=== PATIENT | female | born 1945 | race Caucasian/White ===

== ENCOUNTER → 2017-05-03 | Outpatient (CLI) | payer MEDICARE, OTHER ==
[~2017-05-03] VITALS: Ht 170.2 cm; Wt 91.6 kg
[~2017-05-03] MED LIST: AMIT100T2; ASCO500C14; BUTA-234; BUTA-234 PO; CALCIUM PO; CHOL100011; CLCX200C; CYAN10007; CYCL10TA9 PO; EST.625T; GLUC10002; MEPE50TA; NAPR-243 PO; OXYC-12 PO; PRAM0.252; TRIA1TAB2; VERA240C2
[2017-05-03 10:32] VITALS: BP 130/81
[2017-05-03 10:50] VITALS: BP 124/70
--- NOTE | 2017-05-03 11:45 | Diagnostic Imaging Report ---
EXAMINATION: Dedicated thyroid ultrasound performed with ultrasound guidance provided for FNA performed by Dr. Solis. Indication: Thyroid nodule FINDINGS: Ultrasound images demonstrate a right thyroid nodule. IMPRESSION: Ultrasound guidance provided for right thyroid nodule FNA. Dictated by: Dictated on workstation # [id number]
== END ==
LOC: RAD 10:23
PROVIDERS: ATTEND Otolaryngology Otolaryngology/Facial Plastic Surgery
DX: E04.1 Nontoxic single thyroid nodule (principal)
CPT/HCPCS: 76942; 88305

== ENCOUNTER → 2017-09-03 | Outpatient (CLI) | payer MEDICARE, OTHER ==
--- NOTE | 2017-09-03 17:13 | Diagnostic Imaging Report ---
INDICATION: Left lung lesion. TECHNIQUE: CT chest obtained without IV contrast. COMPARISON: There is no previous study available for comparison. FINDINGS: There are no enlarged mediastinal or hilar nodes. There are no enlarged axillary nodes. There is enlargement of the left thyroid lobe which passes substernally. The left thyroid lobe measured about 3.2 cm in diameter inferiorly. There is no pleural or pericardial fluid. Visualized portions of the upper abdomen demonstrated no overt lesions. Lung parenchymal windows demonstrated a nodular lesion in the right middle lobe measuring about 8 mm. There is a small nodule in the left lower lobe measuring about 6 mm inferiorly. There is an additional nodular lesion in the left lower lobe more centrally measuring about 10 mm. IMPRESSION: 1. There are two left lower lobe nodules and one right middle lobe nodule as described above. These lesions may represent granulomas or small neoplasms. Would suggest either PET imaging or short-term followup in 3 months to assess for growth. 2. There is also enlargement of the left thyroid lobe, which can be followed sonographically. There was no other significant finding. Dictated by: Dictated on workstation # [id number]
== END ==
LOC: RAD 13:43
PROVIDERS: ATTEND Nurse Practitioner Family
DX: R91.8 Other nonspecific abnormal finding of lung field (principal); E04.9 Nontoxic goiter, unspecified
CPT/HCPCS: 71250

== ENCOUNTER 2017-11-23 08:09 | Day surgery (SDC) | payer MEDICARE, OTHER ==
[~2017-11-23] VITALS: Ht 170.2 cm; Wt 97.5 kg
[~2017-11-23 08:09] MED LIST changes: +AMIT100T2 PO; +ASPI-983 PO; +BUTA1TAB9 PO; +CEVI30CA7 PO; +PRAM0.252 PO; +SIMV20TA PO; +TRIA1CAP4 PO; +VERA360C2 PO
[2017-11-23 08:12] VITALS: BP 173/105
[2017-11-23] MEDS ORDERED: POVIDONE (BETADINE) OPHTH SOLN 5% 30 ML OP ONE (08:30)
[2017-11-23] MEDS: TETRACAINE 0.5% OPHTH SOLN 4 ML BTL (SINGLE DOSE ONLY) OU PRN ×4 (08:32→09:23)
[2017-11-23] MEDS: CYCLOPENTOLATE 1% (CYCLOGYL) 2 ML DROPS OP SCH ×3 (08:40→08:53)
[2017-11-23] MEDS: PHENYLEPHRINE 10% OPHTH (NEO-SYN) 5 ML BTL OU SCH ×3 (08:40→08:53)
[2017-11-23] MEDS ORDERED: MIDAZOLAM 2 MG/2 ML (VERSED) VIAL ONE (08:44)
--- NOTE | 2017-11-23 09:13 | Progress Note-Pre Operative ---
Pre-Operative Progress Note H&P Reviewed The H&P was reviewed, patient examined and no changes noted. Date Seen by Provider: Nov 23, 2017 Time Seen by Provider: 09:12 Date H&P Reviewed: Nov 23, 2017 Time H&P Reviewed: 09:13 Pre-Operative Diagnosis: cataract r eye KORINA COLE MD Nov 23, 2017 09:13
[2017-11-23] MEDS: VANCOMYCIN/BSS (COMPOUNDED) 10 MG/ML SYR OP ONE (09:25)
[2017-11-23 09:44] VITALS: BP 173/105
--- NOTE | 2017-11-23 09:45 | Ophthalmology Operative Report ---
Cataract removal/placement IOL PREOPERATIVE DIAGNOSIS: Cataract Right Eye POSTOPERATIVE DIAGNOSIS: Cataract Right Eye PROCEDURE: Cataract removal and placement of posterior chamber implant, right eye SURGEON: Jonathan Cole ANESTHESIA: Topical with sedation COMPLICATIONS: None ESTIMATED BLOOD LOSS: Minimal DESCRIPTION OF PROCEDURE: After proper informed consent was obtained, the patient, a 72 female, was taken to the Operating Room and the right eye was anesthetized with tetracaine. They right eye was then prepped and draped in the usual manner. A wire lid speculum was placed. A paracentesis was made at the left hand position. Preservative free lidocaine was injected into the anterior chamber followed by viscoelastic. A clear corneal incision was made in the temporal position. A capsulorrhexis was preformed and the central nuclear and cortical material were removed. The posterior capsule was polished and an Maxx SN6CWS 21.5 IOL was placed into the capsular bag. The residual viscoelastic was aspirated and balanced saline solution was injected into the anterior chamber. 0.1 ml of Vancomycin (1mg/0.1ml ) was injected into the anterior chamber. The would was checked and found to be water tight. The patient tolerated the procedure well without complications. JONATHAN COLE MD Nov 23, 2017 09:45
[2017-11-23] MEDS ORDERED: LIDOCAINE PF 2% 5 ML (XYLOCAINE) VIAL ONE (09:51)
[2017-11-23] MEDS ORDERED: LIDOCAINE PF 1% 2 ML AMP INJ ONE (11:47)
[2017-11-23] MEDS ORDERED: VANCOMYCIN/BSS (COMPOUNDED) 10 MG/ML SYR OP ONE (11:47)
[2017-11-23] MEDS ORDERED: TIMOLOL MALEATE 0.5% 5 ML (TIMOPTIC) BTL OU ONE (11:47)
[2017-11-27] MEDS ORDERED: EPINEPHrine INJECTION 1 MG/ML AMP IR ONE (12:57)
== END 2017-11-23 09:50 | disposition home or self-care (01) ==
LOC: SDC 08:09
PROVIDERS: ATTEND Specialist
DX: H25.9 Unspecified age-related cataract (principal); I10 Essential (primary) hypertension; E11.9 Type 2 diabetes mellitus without complications; Z79.82 Long term (current) use of aspirin; Z79.899 Other long term (current) drug therapy
CPT/HCPCS: 82962

== ENCOUNTER → 2017-12-05 | Outpatient (CLI) | payer MEDICARE, OTHER ==
--- NOTE | 2017-12-05 10:45 | Diagnostic Imaging Report ---
PROCEDURE: CT chest without contrast. TECHNIQUE: Multiple contiguous axial images were obtained through the chest without the use of intravenous contrast. INDICATION: Pulmonary nodules, followup. COMPARISON: Correlation is made with prior CT chest from 09/03/2017. FINDINGS: The enlarged left lobe of the thyroid is again noted and similar to prior examination. No axillary lymphadenopathy is identified. Hilar and mediastinal evaluation is limited without intravenous contrast but no significant abnormality is identified. No pericardial or pleural fluid is identified. Previously noted pulmonary parenchymal nodule in the lateral portion of the right middle lobe is stable at 8 mm, image 35. The nodular density in the anterior portion of the left lower lobe is stable at 11 mm, image 39. Smaller nodule more inferiorly in the lateral portion of the left lower lobe stable at 6-7 mm, image 48. No new or enlarging pulmonary nodules are identified. The images through the upper abdomen are unremarkable. IMPRESSION: Stable noncontrast CT of the chest when compared with prior examination from 09/03/2017. Previously noted pulmonary nodules are stable. Continued followup could be performed to confirm stability. Dictated by: Dictated on workstation # [id number]
== END ==
LOC: RAD 09:36
PROVIDERS: ATTEND Nurse Practitioner Family
DX: R91.8 Other nonspecific abnormal finding of lung field (principal)
CPT/HCPCS: 71250

== ENCOUNTER 2017-12-07 05:36 | Outpatient (CLI) | payer MEDICARE, OTHER ==
[~2017-12-07] VITALS: Ht 170.2 cm; Wt 97.5 kg
== END 2017-12-07 14:24 ==
LOC: PREOP 05:36
PROVIDERS: ATTEND Specialist
DX: Z01.818 Encounter for other preprocedural examination (principal); H25.12 Age-related nuclear cataract, left eye

== ENCOUNTER 2017-12-14 07:52 | Day surgery (SDC) | payer MEDICARE, OTHER ==
[~2017-12-14] VITALS: Ht 170.2 cm; Wt 97.5 kg
[2017-12-14] MEDS: TETRACAINE 0.5% OPHTH SOLN 4 ML BTL (SINGLE DOSE ONLY) OU PRN ×4 (08:13→08:40)
[2017-12-14] MEDS ORDERED: EPINEPHrine INJECTION 1 MG/ML AMP INJ ONE (08:15)
[2017-12-14] MEDS ORDERED: LIDOCAINE PF 1% 2 ML AMP IR PRN (08:15)
[2017-12-14] MEDS ORDERED: POVIDONE (BETADINE) OPHTH SOLN 5% 30 ML OP ONE (08:15)
[2017-12-14] MEDS ORDERED: TIMOLOL MALEATE 0.5% 5 ML (TIMOPTIC) BTL OU PRN (08:15)
[2017-12-14] MEDS ORDERED: VANCOMYCIN/BSS (COMPOUNDED) 10 MG/ML SYR OP ONE (08:15)
[2017-12-14 08:20] VITALS: BP 160/78
[2017-12-14] MEDS: CYCLOPENTOLATE 1% (CYCLOGYL) 2 ML DROPS OP SCH ×3 (08:28→08:40)
[2017-12-14] MEDS: PHENYLEPHRINE 10% OPHTH (NEO-SYN) 5 ML BTL OU SCH ×3 (08:28→08:40)
--- NOTE | 2017-12-14 09:10 | Ophthalmologist Pre-Op Note ---
Pre-Operative Progress Note H&P Reviewed The H&P was reviewed, patient examined and no changes noted. Date H&P Reviewed: Dec 14, 2017 Time H&P Reviewed: 09:10 Pre-Op Dx Cataract, Left Eye KORINA COLE MD Dec 14, 2017 09:10
[2017-12-14] MEDS ORDERED: MIDAZOLAM 2 MG/2 ML (VERSED) VIAL ONE (09:19)
--- NOTE | 2017-12-14 09:41 | Ophthalmology Operative Report ---
Cataract removal/placement IOL PREOPERATIVE DIAGNOSIS: Cataract Left Eye POSTOPERATIVE DIAGNOSIS: Cataract Left Eye PROCEDURE: Cataract removal and placement of posterior chamber implant, left eye SURGEON: Jonathan Cole ANESTHESIA: Topical with sedation COMPLICATIONS: None ESTIMATED BLOOD LOSS: Minimal DESCRIPTION OF PROCEDURE: After proper informed consent was obtained, the patient, a 72 female, was taken to the Operating Room and the left eye was anesthetized with tetracaine. They left eye was then prepped and draped in the usual manner. A wire lid speculum was placed. A paracentesis was made at the left hand position. Preservative free lidocaine was injected into the anterior chamber followed by viscoelastic. A clear corneal incision was made in the temporal position. A capsulorrhexis was preformed and the central nuclear and cortical material were removed. The posterior capsule was polished and Maxx SN6CWS 22.0 IOL was placed into the capsular bag. The residual viscoelastic was aspirated and balanced saline solution was injected into the anterior chamber. 1.0 ml of Vancomycin (10mg/ 1.0ml) was injected into the anterior chamber. The would was checked and found to be water tight. The patient tolerated the procedure well without complications. JONATHAN COLE MD Dec 14, 2017 09:41
[2017-12-14 09:50] VITALS: BP 143/55
--- NOTE | 2017-12-14 15:05 | Anesthesia-General Post-Op ---
MAC Patient Condition Mental Status/LOC: Same as Preop Cardiovascular: Satisfactory Nausea/Vomiting: Absent Respiratory: Satisfactory Pain: Controlled Complications: Absent Post Op Complications Complications None Follow Up Care/Instructions Patient Instructions None needed. Anesthesiology Discharge Order Discharge Order Patient is doing well, no complaints, stable vital signs, no apparent adverse anesthesia problems. No complications reported per nursing. LINCOLN WHITE CRNA Dec 14, 2017 15:05
--- OUTSIDE RECORDS SUMMARY | 2017-12-16 03:56 | XMS REPORT | Continuity of Care Document ---
Author Author [employer] Organization [facility] Address Unknown Phone Unavailable Care Team Providers Care Seismograph Chief Name Role Phone [employer] Unavailable Unavailable Problems Medications Allergies, Adverse Reactions, Alerts Immunizations Results Vital Signs Encounters Location Location Details Encounter Type Encounter Number Reason For Visit Attending Provider ADM Date DC Date Status Source OUTPATIENT [id number] MEGAN MORTON 05/24/2017 05/24/2017 Active [facility] OUTPATIENT [id number] CHAN MIRANDA 10/25/20172017 Active [facility] OUTPATIENT [id number] JOLANTA CHAUDHARI 11/15/20172017 Active [facility] CA SERIES [id number] RIAN DODD 11/29/20172017 Active [facility] Anoop DODD Active [facility] Procedures Plan of Care Social History Assessment and Plan Family History Advance Directives Functional Status
--- OUTSIDE RECORDS SUMMARY | 2017-12-16 03:57 | XMS REPORT | Encounter Summary ---
Author Author [facility] Organization [facility] Address Unknown Phone Unavailable Care Team Providers Care Psychiatric Nursing Assistant Name Role Phone Lilia Zhou MD PCP Kristopher Pack MD Unavailable Tamara Awan APRN Unavailable Dashawn Gonzalez MD Unavailable Reason for Referral * Radiology Services (Routine) Status Reason Specialty Diagnoses / Referred By Referred To Procedures Contact Contact No Auth Needed Radiology Diagnoses Jake Hassan Ww Ct Lymphadenopathy MD [place] of head and neck [address] [facility] [address] [address] [address] [place], [place] Phone: W/CONTRAST [phone] * Radiology Services (Routine) Status Reason Specialty Diagnoses / Referred By Referred To Procedures Contact Contact No Auth Needed Radiology Diagnoses Jake Hassan Ww Ct Lymphadenopathy MD [place] of head and neck [address] [facility] [address] [address] [address] [place], [place] Phone: W/CONTRAST [phone] Reason for Visit * Radiology Services (Routine) Status Reason Specialty Diagnoses / Referred By Referred To Procedures Contact Contact No Auth Needed Radiology Diagnoses Jake Hassan Ww Ct Lymphadenopathy MD [address] [place] of head and neck [address] [place] [address] [place] [address] [place], [place] Phone: W/CONTRAST [phone] Encounter Details Date Type Department Care Team Description 11/29/2017 [facility] Jake Hassan MD Encounter [facility] [address] [address] [place] [address] [place] [address] [phone] Social History Tobacco Use Types Packs/Day Years Used Date Never Smoker Smokeless Tobacco: Never Used Alcohol Use Drinks/Week oz/Week Comments No Sex Assigned at Date Recorded Not on file as of this encounter Medications at Time of Discharge Medication Sig. Disp. Refills Start Date End Date amitriptyline (ELAVIL) 25 4 tabs po hs 360 tablet 3 10/25/2017 mg tablet aspirin EC 81 mg tablet Take 81 mg by mouth daily. Take with food. butalbital/acetaminophen/ Take 1 tablet by mouth 100 tablet 5 2017 caffeine(+) (FIORICET) every 4 hours while awake 50/325/40 mg tablet as needed for Headache. one tab. as needed cevimeline(+) (EVOXAC) 30 Take 30 mg by mouth three mg capsule times daily. diclofenac sodium DR Take 50 mg by mouth twice (VOLTAREN) 50 mg tablet daily. DUREZOL 0.05 % ophthalmic 11/05/2017 emulsion estrogens, conjugated Take 1 Tab by mouth 90 Tab 3 08/28/2016 (PREMARIN) 0.3 mg tablet daily. METHYL-B12/L-MEFOLATE/B6 Take by mouth twice PHOS (METANX PO) daily. pramipexole (MIRAPEX) TAKE 1 TABLET BY MOUTH 190 tablet 3 10/25/2017 0.125 mg tablet TWICE DAILY. INDICATIONS: RESTLESS LEGS SYNDROME Saxagliptin (ONGLYZA) 2.5 Take by mouth daily. mg Tab Selenium 100 mcg tab Take 1 tablet by mouth 11/15/2017 twice daily. simvastatin (ZOCOR) 20 mg Take 20 mg by mouth at tablet bedtime daily. triamterene-hydrochloroth TAKE 1 TABLET BY MOUTH 90 tablet 0 2016 iazide (MAXZIDE) 37.5-25 DAILY. mg tablet trimethoprim/polymyxin B 11/05/2017 (POLYTRIM) 0.1 - 10,000 %-unit/mL ophthalmic solution verapamil SR (VERELAN) Take 1 capsule by mouth 90 capsule 3 2017 240 mg C24P at bedtime daily. as of this encounter Plan of Treatment Not on fileas of this encounter Results * CT NECK W/CONTRAST (11/29/2017 3:47 PM) Specimen Performing Laboratory [facility] RESULTS Impressions 1. Enlarged heterogeneous thyroid with a dominant nodule within the left inferior pole measuring up to 4.0 x 3.6 x 2.7 cm. In correlation with the recent ultrasound, this appears predominantly isoechoic to slightly hyperechoic on these ultrasound. Biopsy is suggested if not previously performed. 2. Midline thyroid attenuation soft tissue along the strap musculature extending superiorly. Differential considerations include an atypical exophytic parameter lobe, thyroid tissue or thyroid neoplasm within a thyroglossal duct cyst, or midline thyroid sher metastases. 3. No level 1 through 5 lymphadenopathy Finalized by Tay Gonzalez M.D. on 11/30/2017 9:32 AM. Dictated by Tay Gonzalez M.D. on 11/30/2017 9:[address] neck History: Lymphadenopathy of head and neck. Technique: Multiple contiguous axial images were obtained through the neck following the administration of Omnipaque 350 contrast. Coronal and sagittal reconstructions were performed from the source data. Findings: Comparison is made with an ultrasound of the neck from November 15, 2017. Brain and Orbits: No intracranial or orbital mass in the visualized portions of the brain or orbits Sinuses and Mastoids: There is a small left maxillary sinus retention cyst. Mastoid air cells appear clear. Thyroid: The thyroid is enlarged and heterogeneous. There is a dominant mass lesion within the left thyroid measuring approximately 4.0 x 3.6 x 2.7 cm ( image 53 of series 601 and image 33 of series 2). Suprahyoid Neck: Normal oral cavity, oropharynx, parapharyngeal space, and retropharyngeal space. Infrahyoid Neck: Within the midline infrahyoid neck there is nodular hyperdense or enhancing soft tissue with attenuation identical to that of the thyroid at the midline along the strap musculature. This appears predominantly above the isthmus. The superior extent remains below the thyroid. The tissue measures 2.2 x 1.0 cm AP and transverse on image 49 of series 2. Lymph Nodes: No level 1 through 5 lymphadenopathy. Parotid and Submandibular Glands: Unremarkable Vasculature: Unremarkable. Osseous Structures: Degenerative changes of the spine. Multiple absent teeth. No aggressive or destructive osseous lesions. Thoracic inlet: Some areas of atelectasis on the left. Procedure Note Interface, Radiant Results - 11/30/2017 9:35 AM HOME APPLIANCES MECHANIC CT neck History: Lymphadenopathy of head and neck. Technique: Multiple contiguous axial images were obtained through the neck following the administration of Omnipaque 350 contrast. Coronal and sagittal reconstructions were performed from the source data. Findings: Comparison is made with an ultrasound of the neck from November 15, 2017. Brain and Orbits: No intracranial or orbital mass in the visualized portions of the brain or orbits Sinuses and Mastoids: There is a small left maxillary sinus retention cyst. Mastoid air cells appear clear. Thyroid: The thyroid is enlarged and heterogeneous. There is a dominant mass lesion within the left thyroid measuring approximately 4.0 x 3.6 x 2.7 cm ( image 53 of series 601 and image 33 of series 2). Suprahyoid Neck: Normal oral cavity, oropharynx, parapharyngeal space, and retropharyngeal space. Infrahyoid Neck: Within the midline infrahyoid neck there is nodular hyperdense or enhancing soft tissue with attenuation identical to that of the thyroid at the midline along the strap musculature. This appears predominantly above the isthmus. The superior extent remains below the thyroid. The tissue measures 2.2 x 1.0 cm AP and transverse on image 49 of series 2. Lymph Nodes: No level 1 through 5 lymphadenopathy. Parotid and Submandibular Glands: Unremarkable Vasculature: Unremarkable. Osseous Structures: Degenerative changes of the spine. Multiple absent teeth. No aggressive or destructive osseous lesions. Thoracic inlet: Some areas of atelectasis on the left. IMPRESSION 1. Enlarged heterogeneous thyroid with a dominant nodule within the left inferior pole measuring up to 4.0 x 3.6 x 2.7 cm. In correlation with the recent ultrasound, this appears predominantly isoechoic to slightly hyperechoic on these ultrasound. Biopsy is suggested if not previously performed. 2. Midline thyroid attenuation soft tissue along the strap musculature extending superiorly. Differential considerations include an atypical exophytic parameter lobe, thyroid tissue or thyroid neoplasm within a thyroglossal duct cyst, or midline thyroid sher metastases. 3. No level 1 through 5 lymphadenopathy Finalized by Tay Gonzalez M.D. on 11/30/2017 9:32 AM. Dictated by Tay Gonzalez M.D. on 11/30/2017 9:13 AM. * POC CREATININE, RAD (11/29/2017 3:17 PM) Component Value Ref Range Creatinine, POC 0.9 0.4 - 1.00 MG/DL Specimen Performing Laboratory [facility] [address] [place] [address] in this encounter Visit Diagnoses Diagnosis Lymphadenopathy of head and neck Administered Medications Medication Order MAR Action Action Date Dose Rate Site iohexol (OMNIPAQUE-350) 350 mg/mL Given 11/29/2017 70 mL injection 70 mL 15:48 HOME APPLIANCES MECHANIC 70 mL, Intravenous, ONCE, 1 dose, Rossy 11/29/17 at 1500, NOTE: This is a HIGH ALERT Medication. sodium chloride PF 0.9% injection 50 mL Given 11/29/2017 50 mL 50 mL, Intravenous, ONCE, 1 dose, Rossy 15:48 HOME APPLIANCES MECHANIC 11/29/17 at 1500, Intra-procedure (IR) in this encounter
--- OUTSIDE RECORDS SUMMARY | 2017-12-16 03:57 | XMS REPORT | Encounter Summary ---
Author Author [facility] Organization [facility] Address Unknown Phone Unavailable Care Team Providers Care Painter Apprentice Name Role Phone Lilia Zhou MD PCP Kristopher Pack MD Unavailable Tamara Awan APRN Unavailable Dashawn Gonzalez MD Unavailable Reason for Referral * Radiology Services (Routine) Status Reason Specialty Diagnoses / Referred By Referred To Procedures Contact Contact No Auth Needed Radiology Diagnoses Jake Hassan, [address] Lymphadenopathy [address] [place] of head and neck [address] [place] [address] [place], [place] Phone: W/CONTRAST [phone] Encounter Details Date Type Department Care Team Description 11/20/2017 Orders Only [facility] Jake Hassan MD Lymphadenopathy of head [facility] - ENT [address] and neck (Primary Dx) 3RD FLOOR POD [address] [place] [address] OFFICE BLDG [phone] [place] [address] Social History Tobacco Use Types Packs/Day Years Used Date Never Smoker Smokeless Tobacco: Never Used Alcohol Use Drinks/Week oz/Week Comments No Sex Assigned at Date Recorded Not on file as of this encounter Progress Notes * Va Quintero LPN - 11/20/2017 1:16 PM COMPILATION CLERK Patient advised of Thyroid Ultrasound results, per Dr. Hassan requesting CT Scan Neck to further evaluate Mildly enlarged, indeterminant central compartment lymph nodes. Patient verbalized understanding. Appointment coordinated. in this encounter Plan of Treatment Not on [...] Interface, Radiant Results - 11/30/2017 9:[address] neck History: Lymphadenopathy of head and [...] Tay Gonzalez M.D. on 11/30/2017 9:13 AM. in this encounter Visit Diagnoses Diagnosis Lymphadenopathy of head and neck - Primary
--- OUTSIDE RECORDS SUMMARY | 2017-12-16 03:57 | XMS REPORT | Encounter Summary ---
Author Author [facility] Organization [facility] Address Unknown Phone Unavailable Care Team Providers Care Intelligence Consultant Name Role Phone Lilia Zhou MD PCP Kristopher Pack MD Unavailable Tamara Awan APRN Unavailable Dashawn Gonzalez MD Unavailable Encounter Details Date Type Department Care Team Description 11/29/2017 [facility] Lilia Zhou MD Encounter [facility] [address] [facility] [address] [place] [address] [facility] [address] [place], [place] [id number] [phone] Social History Tobacco Use Types Packs/Day Years [...] on fileas of this encounter Results * MAMMO SCREEN BILAT/TERRANCE/CAD (11/29/2017 4:20 PM) Specimen Performing Laboratory [facility] RESULTS Impressions ACR BI-RADS Assessments: BIRAD 1-Negative RECOMMENDATION: Routine screening mammogram in 1 year. Narrative Last mammogram was performed 1 year ago. Reason for exam: screening, asymptomatic. Performed by: Lu Del Rosario Staff Assistant [id number] DIGITAL MAMMO SCREEN BILAT/TERRANCE/CAD: NOVEMBER 29, 2017 - 2D/3D Procedure 3D Routine views. 2D Routine views. There are scattered areas of fibroglandular density.2D, and 3D images were obtained. No masses, densities or calcifications to suggest malignancy. No change when compared to prior studies. Electronically signed and approved by: Joseluis Munguia M.D. [id number] Procedure Note Interface, Radiant Results - 11/30/2017 7:24 AM ADMITTING SUPERVISOR Last mammogram was performed 1 year ago. Reason for exam: screening, asymptomatic. Performed by: Lu Del Rosario Staff Assistant [id number] DIGITAL MAMMO SCREEN BILAT/TERRANCE/CAD: NOVEMBER 29, 2017 - 2D/3D Procedure 3D Routine views. 2D Routine views. There are scattered areas of fibroglandular density. 2D, and 3D images were obtained. No masses, densities or calcifications to suggest malignancy. No change when compared to prior studies. Electronically signed and approved by: Joseluis Munguia M.D. [id number] IMPRESSION ACR BI-RADS Assessments: BIRAD 1-Negative RECOMMENDATION: Routine screening mammogram in 1 year. in this encounter Visit Diagnoses Diagnosis Breast cancer screening Breast screening, unspecified
--- OUTSIDE RECORDS SUMMARY | 2017-12-16 03:57 | XMS REPORT | Clinical Summary ---
Author Author [facility] Address Unknown Phone Unavailable Care Team Providers Care Heel Seat Trimmer Name Role Phone Lilia Zhou MD PCP Kristopher Pack MD Unavailable Tamara Awan APRN Unavailable Dashawn Gonzalez MD Unavailable Source Comments Some departments are not documenting in the electronic medical record. If you do not see the information that you expected, contact Release of Information in the Health Information Management department at [phone] for further assistance in locating additional records.[facility] Allergies No Known Allergies Current Medications Prescription Sig. Disp. Refills Start End Date Status Date Saxagliptin (ONGLYZA) 2.5 Take by mouth daily. Active mg Tab METHYL-B12/L-MEFOLATE/B6 Take by mouth twice Active PHOS (METANX PO) daily. diclofenac sodium DR Take 50 mg by mouth twice Active (VOLTAREN) 50 mg tablet daily. simvastatin (ZOCOR) 20 mg Take 20 mg by mouth at Active tablet bedtime daily. cevimeline(+) (EVOXAC) 30 Take 30 mg by mouth three Active mg capsule times daily. estrogens, conjugated Take 1 Tab by mouth 90 Tab 3 08/28/20 Active (PREMARIN) 0.3 mg tablet daily. 16 triamterene-hydrochloroth TAKE 1 TABLET BY MOUTH 90 tablet 0 09/14/20 Active iazide (MAXZIDE) 37.5-25 DAILY. 17 mg tablet amitriptyline (ELAVIL) 25 4 tabs po hs 360 tablet 3 10/25/19 Active mg tablet 18 butalbital/acetaminophen/ Take 1 tablet by mouth 100 tablet 5 Active caffeine(+) (FIORICET) every 4 hours while awake 18 50/325/40 mg tablet as needed for Headache. one tab. as needed pramipexole (MIRAPEX) TAKE 1 TABLET BY MOUTH 190 tablet 3 10/25/19 Active 0.125 mg tablet TWICE DAILY. INDICATIONS: 18 RESTLESS LEGS SYNDROME verapamil SR (VERELAN) Take 1 capsule by mouth 90 capsule 3 10/25/19 Active 240 mg C24P at bedtime daily. 18 Selenium 100 mcg tab Take 1 tablet by mouth 11/15/19 Active twice daily. 18 DUREZOL 0.05 % ophthalmic 11/05/19 Active emulsion 18 trimethoprim/polymyxin B 11/05/19 Active (POLYTRIM) 0.1 - 10,000 18 %-unit/mL ophthalmic solution aspirin EC 81 mg tablet Take 81 mg by mouth Active daily. Take with food. 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 Hassan's office regarding CT neck performed today. 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 S/p wide local excision of right forearm melanoma (0.36 mm deep) performed in 2000. PRESENT THERAPY : Surveillance/Survivorship L ast Assessment & Plan: No evidence of recurrent disease. We discussed on-going surveillance and survivorship issues. We have recommended the use of Vitamin D 2000 iu daily. We reviewed safe sun practices--limit exposure during peak hours, SPF 30 or greater, avoid tanning beds, seek shade, sun protective clothes, routine health maintenance including other cancer screening as appropriate and immunizations. We reviewed the need for on-going detailed skin examination as well as skin self exam and the ABCDEs of pigmented lesions. The patient has been counseled that, in addition to the risk of recurrent melanoma, there is a higher than normal risk of developing a another primary melanoma over time. The patient asked questions and time was allowed to fully answer these. She is many years out but prefers to continue her follow up surveillance and skin examinations in this clinic. PLAN: 1. Will return to clinic in one year. 2. She has been having screening mammography performed here at the same time as these visits and will order on return. The above plan was discussed and reviewed with the patient/family and they have received appropriate instructions and education and verbalize good understanding. Lump or mass in breast 10/16/2007 Encounters Date Type Specialty Care Team Description 11/29/2017 [facility] Radiology Lilia Zhou MD Encounter 11/29/2017 [facility] Radiology Jake Hassan MD Encounter 11/29/2017 Office Visit Oncology Deborah Ferreira PA-C Malignant melanoma, Me[place], Ro, BIZTALK ARCHITECT unspecified site (HCC); Thyroid nodule 11/23/2017 Ancillary Radiology Lilia Zhou MD Breast cancer screening Orders 11/22/2017 Telephone General Surgery Elsy Frost Test 11/20/2017 Procedure Pass Radiology 11/20/2017 Orders Only Otolaryngology Jake Hassan MD Lymphadenopathy of head and neck (Primary Dx) 11/16/2017 Telephone Endocrinology, Metabolism Arnold Reyna MD Results & Genetics 11/15/2017 [facility] Lab Arnold Reyna MD Nontoxic single thyroid Encounter nodule 11/15/2017 Office Visit Otolaryngology Jake Hassan MD Thyroid nodule (Primary Dx); Myrtle's edema of the vocal folds 11/15/2017 Procedure visit Endocrinology, Metabolism Arnold Reyna MD Thyroid nodule (Primary & Genetics Dx); 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 [facility] Radiology Jake Hassan MD Encounter 10/31/2017 Telephone Endocrinology, Metabolism Arnold Reyna MD Other (appointment) & Genetics 10/31/2017 Refill Neurology Dashawn Gonzalez MD 10/30/2017 Refill Neurology Dashawn Gonzalez MD 10/25/2017 Office Visit Neurology Lilia Zhou MD Migraine without status Jerry, Chayo Berger, DO migrainosus, not intractable, unspecified migraine type (Primary Dx); Restless legs syndrome 10/19/2017 Refill Neurology Dashawn Gonzalez MD 10/06/2017 Refill Neurology Dashawn Gonzalez MD from Last 3 Months Family History Relation Name Status Comments Brother Alive Father Mother Sister Alive Son Alive Son Alive Social History Tobacco Use Types Packs/Day Years Used Date Never Smoker Smokeless Tobacco: Never Used Alcohol Use Drinks/Week oz/Week Comments No Sex Assigned at Date Recorded Not on file Last Filed Vital Signs Vital Sign Reading Time Taken Blood Pressure 188/100 11/29/2017 1:47 PM MEASUREMENT ANALYST Pulse 74 11/29/2017 1:47 PM MEASUREMENT ANALYST Temperature 36.5 C (97.7 F) 11/29/2017 1:47 PM MEASUREMENT ANALYST Respiratory Rate 17 11/29/2017 1:47 PM MEASUREMENT ANALYST Oxygen Saturation 100% 11/29/2017 1:47 PM MEASUREMENT ANALYST Inhaled Oxygen - - Concentration Weight 101 kg (222 lb 9.6 oz) 11/29/2017 1:47 PM MEASUREMENT ANALYST Height 170.2 cm (5' 7.01") 11/29/2017 1:47 PM MEASUREMENT ANALYST Body Mass Index 34.86 11/29/2017 1:47 PM MEASUREMENT ANALYST Plan of Treatment Health Maintenance Due Date Last Done Comments PHYSICAL (COMPREHENSIVE) 1952 EXAM PERTUSSIS VACCINE 1954 TETANUS VACCINE 1960 COLORECTAL CANCER 1993 SCREENING SHINGLES VACCINE 2003 OSTEOPOROSIS SCREENING 2008 PREVNAR/PNEUMOVAX (#1) 2008 INFLUENZA VACCINE 07/08/2018 BREAST CANCER SCREENING 11/29/2018 11/29/2017, 11/29/2016, 11/24/2015, Additional history exists Results * MAMMO SCREEN BILAT/TERRANCE/CAD (11/29/2017 4:20 PM) Specimen Performing Laboratory [facility] RESULTS Impressions ACR BI-RADS Assessments: BIRAD 1-Negative RECOMMENDATION: Routine screening mammogram in 1 year. Narrative Last mammogram was performed 1 year ago. Reason for exam: screening, asymptomatic. Performed by: Lu Del Rosario, Sensory Scientist [id number] DIGITAL MAMMO SCREEN BILAT/TERRANCE/CAD: NOVEMBER 29, 2017 - 2D/3D Procedure 3D Routine views. 2D Routine views. There are scattered areas of fibroglandular density.2D, and 3D images were obtained. No masses, densities or calcifications to suggest malignancy. No change when compared to prior studies. Electronically signed and approved by: Joseluis Munguia M.D. [id number] Procedure Note Interface, Radiant Results - 11/30/2017 7:24 AM MEASUREMENT ANALYST Last mammogram was performed 1 year ago. Reason for exam: screening, asymptomatic. Performed by: Lu Del Rosario, Sensory Scientist [id number] DIGITAL MAMMO SCREEN BILAT/TERRANEC/CAD: NOVEMBER 29, 2017 - 2D/3D Procedure 3D Routine views. 2D Routine views. There are scattered areas of fibroglandular density. 2D, and 3D images were obtained. No masses, densities or calcifications to suggest malignancy. No change when compared to prior studies. Electronically signed and approved by: Joseluis Munguia M.D. [id number] IMPRESSION ACR BI-RADS Assessments: BIRAD 1-Negative RECOMMENDATION: Routine screening mammogram in 1 year[address] * CT NECK W/CONTRAST (11/29/2017 3:47 PM) [...] Interface, Radiant Results - 11/30/2017 9:[address] neck History: Lymphadenopathy of head and [...] MG/DL Specimen Performing Laboratory [facility] [address] [place] [address] * THYROID STIMULATING HORMONE-TSH (11/15/2017 1:41 PM) Component Value Ref Range TSH 0.454 0.35 - 5.00 MCU/ML Specimen Performing Laboratory Blood [facility] [address] [place] [address] * FREE T4 (FREE THYROXINE) ONLY (11/15/2017 1:41 PM) Component Value Ref Range T4-Free 0.9 0.6 - 1.6 NG/DL Specimen Performing Laboratory Blood MAIN [facility] [address] [place] [address] * US THYROID (11/15/2017 11:37 AM) Specimen Performing Laboratory [facility] RAD RESULTS Impressions 1.Enlarged, diffusely heterogeneous and mildly hypervascular thyroid gland. This is compatible with the stated history of Darline's thyroiditis. The largest and most discrete nodule in the right lower pole is not significantly changed since the prior study 03/21/2017. No enlarging or morphologically suspicious thyroid nodules are identified to warrant biopsy at this time. 2.Mildly enlarged, indeterminant central compartment lymph nodes. 3.Normal size lateral cervical lymph nodes, which are most likely reactive in nature. If patient continues conservative management, a repeat thyroid ultrasound is recommended in one year to evaluate stability of the thyroid gland and central compartment lymph nodes. Finalized by Samantha Cleveland M.D. on 11/15/2017 4:23 PM. Dictated by Samantha Cleveland M.D. on 11/15/2017 3:50 PM. Narrative Ultrasound of the Neck Clinical Indication:Female, 71 years;thyroid nodule. Per chart review, patient has a history of Darline's thyroiditis. Technique: Multiple grayscale sonographic images were obtained of the neck with additional Color Doppler acquisitions. Comparison: Thyroid ultrasound performed at an outside facility 03/21/2017 Findings: The isthmus is thickened and mildly hypervascular. No discrete nodule identified. The right lobe of the thyroid is enlarged measuring 7.5 x 2.6 x 2.9 cm.The right lobe parenchyma is diffusely heterogeneous and mildly hypervascular. There are numerous similar appearing, confluent nodules throughout the right lobe. The largest and most discrete nodule is measured. There is also a coarse shadowing calcification in the mid right lobe which shows no significant associated solid component. *Nodule 1: Lower pole, posterior. Solid, isoechoic, somewhat lobulated margins, no calcification. Measures 1.5 x 1.1 x 1.4 cm. This measured approximately 1.6 x 1 x 1.3 cm. The left lobe of the thyroid is enlarged measuring 7.6 x 3.6 x 3.1 cm.The right lobe parenchyma is diffusely heterogeneous and mildly hypervascular. Occasional coarse calcification are also noted throughout the left lobe parenchyma. No discrete thyroid nodules are identified. Enlarged upper central compartment lymph nodes are noted. These all maintain an elongated shape though lack a fatty hilum. The largest fulfillment representative level one lymph node measures 2.3 x 0.8 x 2.3 cm (labeled #2), with somewhat disorganized blood flow on color Doppler interrogation. Prominent, yet normal sized bilateral cervical lymph nodes are noted. These all maintain an elongated shape and typical fatty hilum, most likely reactive in nature. Procedure Note Interface, Radiant Results - 11/15/2017 4:26 PM MEASUREMENT ANALYST Ultrasound of the Neck Clinical Indication:Female, 71 years; thyroid nodule. Per chart review, patient has a history of Darline's thyroiditis. Technique: Multiple grayscale sonographic images were obtained of the neck with additional Color Doppler acquisitions. Comparison: Thyroid ultrasound performed at an outside facility 03/21/2017 Findings: The isthmus is thickened and mildly hypervascular. No discrete nodule identified. The right lobe of the thyroid is enlarged measuring 7.5 x 2.6 x 2.9 cm. The right lobe parenchyma is diffusely heterogeneous and mildly hypervascular. There are numerous similar appearing, confluent nodules throughout the right lobe. The largest and most discrete nodule is measured. There is also a coarse shadowing calcification in the mid right lobe which shows no significant associated solid component. * Nodule 1: Lower pole, posterior. Solid, isoechoic, somewhat lobulated margins , no calcification. Measures 1.5 x 1.1 x 1.4 cm. This measured approximately 1.6 x 1 x 1.3 cm. The left lobe of the thyroid is enlarged measuring 7.6 x 3.6 x 3.1 cm. The right lobe parenchyma is diffusely heterogeneous and mildly hypervascular. Occasional coarse calcification are also noted throughout the left lobe parenchyma. No discrete thyroid nodules are identified. Enlarged upper central compartment lymph nodes are noted. These all maintain an elongated shape though lack a fatty hilum. The largest fulfillment representative level one lymph node measures 2.3 x 0.8 x 2.3 cm (labeled #2), with somewhat disorganized blood flow on color Doppler interrogation. Prominent, yet normal sized bilateral cervical lymph nodes are noted. These all maintain an elongated shape and typical fatty hilum, most likely reactive in nature. IMPRESSION 1. Enlarged, diffusely heterogeneous and mildly hypervascular thyroid gland. This is compatible with the stated history of Darline's thyroiditis. The largest and most discrete nodule in the right lower pole is not significantly changed since the prior study 03/21/2017. No enlarging or morphologically suspicious thyroid nodules are identified to warrant biopsy at this time. 2. Mildly enlarged, indeterminant central compartment lymph nodes. 3. Normal size lateral cervical lymph nodes, which are most likely reactive in nature. If patient continues conservative management, a repeat thyroid ultrasound is recommended in one year to evaluate stability of the thyroid gland and central compartment lymph nodes. Finalized by Samantha Cleveland M.D. on 11/15/2017 4:23 PM. Dictated by Samantha Cleveland M.D. on 11/15/2017 3:50 PM. from Last 3 Months
--- OUTSIDE RECORDS SUMMARY | 2017-12-16 03:57 | XMS REPORT | Encounter Summary ---
Author Author [facility] Organization [facility] Address Unknown Phone Unavailable Care Team Providers Care Extract Puller Name Role Phone Lilia Zhou MD PCP Kristopher Pack MD Unavailable Tamara Awan APRN Unavailable Dashawn Gonzalez MD Unavailable Encounter Details Date Type Department Care Team Description 11/23/2017 Ancillary Rad Lilia Zhou MD Breast cancer screening Orders [address] [facility] [address] [place] [address] [place] [address] Social History Tobacco Use Types Packs/Day Years Used Date Never Smoker Smokeless Tobacco: Never Used Alcohol Use Drinks/Week oz/Week Comments No Sex Assigned at Date Recorded Not on file as of this encounter Plan of Treatment Not on fileas of this encounter Results * MAMMO SCREEN BILAT/TERRANCE/CAD (11/29/2017 4:20 PM) Specimen Performing Laboratory [facility] RESULTS Impressions ACR BI-RADS Assessments: BIRAD 1-Negative RECOMMENDATION: Routine screening mammogram in 1 year. Narrative Last mammogram was performed 1 year ago. Reason for exam: screening, asymptomatic. Performed by: Lu Del Rosario, Horse Breeder [id number] DIGITAL MAMMO SCREEN BILAT/TERRANCE/CAD: NOVEMBER 29, 2017 - 2D/3D Procedure 3D Routine views. 2D Routine views. There are scattered areas of fibroglandular density.2D, and 3D images were obtained. No masses, densities or calcifications to suggest malignancy. No change when compared to prior studies. Electronically signed and approved by: Joseluis Munguia M.D. [id number] Procedure Note Interface, Radiant Results - 11/30/2017 7:24 AM WALLCOVERING TEXTURER Last mammogram was performed 1 year ago. Reason for exam: screening, asymptomatic. Performed by: Lu Del Rosario, Horse Breeder [id number] DIGITAL MAMMO SCREEN BILAT/TERRANCE/CAD: NOVEMBER 29, 2017 - 2D/3D Procedure 3D Routine views. 2D Routine views. There are scattered areas of fibroglandular density. 2D, and 3D images were obtained. No masses, densities or calcifications to suggest malignancy. No change when compared to prior studies. Electronically signed and approved by: Joseluis Munguia M.D. [id number] IMPRESSION ACR BI-RADS Assessments: BIRAD 1-Negative RECOMMENDATION: Routine screening mammogram in 1 year. in this encounter Visit Diagnoses Diagnosis Breast cancer screening Breast screening, unspecified
--- OUTSIDE RECORDS SUMMARY | 2017-12-16 03:57 | XMS REPORT | Encounter Summary ---
Author Author [facility] Organization [facility] Address Unknown Phone Unavailable Care Team Providers Care Grievance Manager Name Role Phone Lilia Zhou MD PCP Kristopher Pack MD Unavailable Tamara Awan APRN Unavailable Dashawn Gonzalez MD Unavailable Reason for Visit * Reason Comments Results Encounter Details Date Type Department Care Team Description 11/16/2017 Telephone [facility] Arnold Reyna MD Results Physicians - Internal [address] [place] [address] Endocrinology Clinic [phone] Medical Office [address] [place] [address] Social History Tobacco Use Types Packs/Day Years Used Date Never Smoker Smokeless Tobacco: Never Used Alcohol Use Drinks/Week oz/Week Comments No Sex Assigned at Date Recorded Not on file as of this encounter Miscellaneous Notes * Telephone Encounter - Jenn Hassan LPN - 11/16/2017 3:06 PM QUILTING SUPERVISOR Called patient relayed message Patient verbalized understanding * Telephone Encounter - Arnold Reyna MD - 11/16/2017 11:02 AM QUILTING SUPERVISOR Please let Ms Rodrigues know, her thyroid levels were normal. They need to be checked annually. in this encounter Plan of Treatment Not on fileas of this encounter Visit Diagnoses Not on filein this encounter
--- OUTSIDE RECORDS SUMMARY | 2017-12-16 03:57 | XMS REPORT | Encounter Summary ---
Author Author [facility] Organization [facility] Address Unknown Phone Unavailable Care Team Providers Care Statuary Painter Name Role Phone Lilia Zhou MD PCP Kristopher Pack MD Unavailable Tamara Awan APRN Unavailable Dashawn Gonzalez MD Unavailable Encounter Details Date Type Department Care Team Description 11/20/2017 Procedure Pass [facility] Radiology [address] [place] [address] Social History Tobacco Use Types Packs/Day Years Used Date Never Smoker Smokeless Tobacco: Never Used Alcohol Use Drinks/Week oz/Week Comments No Sex Assigned at Date Recorded Not on file as of this encounter Plan of Treatment Not on fileas of this encounter Visit Diagnoses Not on filein this encounter
--- OUTSIDE RECORDS SUMMARY | 2017-12-16 03:57 | XMS REPORT | Encounter Summary ---
Author Author [facility] Organization [facility] Address Unknown Phone Unavailable Care Team Providers Care Manager Transportation Planning Name Role Phone Lilia Zhou MD PCP Kristopher Pack MD Unavailable Tamara Awan BALL FRINGE MACHINE OPERATOR Unavailable Dashawn Gonzalez MD Unavailable Reason for Visit * Reason Comments Heme/Onc Care * Consult, Test & Treat Status Reason Specialty Diagnoses / Referred By Referred To Procedures Contact Contact Closed Specialty Oncology Diagnoses Deborah Ferreira Henderson, Ro, Services Personal history ESCOBAR BALL FRINGE MACHINE OPERATOR Required of malignant [address] Nont[address] single [address] [place] [address] [address] [address] Phone: [facility] [place] OFFICE/OUTPT [phone] VISITIFTIKHAR LEVL Fax: IV [phone] Encounter Details Date Type Department Care Team Description 11/29/2017 Office Visit [facility] Deborah Ferreira PA-C Malignant melanoma, [facility] Exam [address] unspecified site (HCC); [address] [place] [address] [place] [address] [phone] Lucero Gautam, BALL FRINGE MACHINE OPERATOR [address] [place], [place] [id number] Social History Tobacco Use Types Packs/Day Years Used Date Never Smoker Smokeless Tobacco: Never Used Alcohol Use Drinks/Week oz/Week Comments No Sex Assigned at Date Recorded Not on file as of this encounter Last Filed Vital Signs Vital Sign Reading Time Taken Blood Pressure 188/100 11/29/2017 1:47 PM JACKER FEEDER Pulse 74 11/29/2017 1:47 PM JACKER FEEDER Temperature 36.5 C (97.7 F) 11/29/2017 1:47 PM JACKER FEEDER Respiratory Rate 17 11/29/2017 1:47 PM JACKER FEEDER Oxygen Saturation 100% 11/29/2017 1:47 PM JACKER FEEDER Inhaled Oxygen - - Concentration Weight 101 kg (222 lb 9.6 oz) 11/29/2017 1:47 PM JACKER FEEDER Height 170.2 cm (5' 7.01") 11/29/2017 1:47 PM JACKER FEEDER Body Mass Index 34.86 11/29/2017 1:47 PM JACKER FEEDER in this encounter Progress Notes * Lucero Meier, BALL FRINGE MACHINE OPERATOR - 11/29/2017 2:00 PM JACKER FEEDER Formatting of this note may be different from the original. Name: Lena Rodrigues : 1945 AGE: 72 y.o. DATE OF SERVICE: 11/29/2017 Subjective: Reason for Visit: Heme/Onc Care Lena Rodrigues is a 72 y.o. female. No matching staging information was found for the patient. History of Present Illness 72 y/o pleasant white female with hx of melanomas. According to her records she had wide local excision of left anterior chest melanoma (1.0 mm deep) with SLNBx (-) performed in 1995. She also had wide local excision of right forearm melanoma (0.36 mm deep) performed in 2000. These were performed by Dr. Dean Mirza. She has most recently been followed by Dr. Olivares who has referred her to Melanoma Survivorship for ongoing surveillance. She is also followed by Dr. Gonzalez in Neurosurgery for migraines. She is following with ENT for hx of thyroid nodules and had CT neck performed today for them. She states she is feeling well and denies symptoms or concerns. Past Medical History: Diagnosis Date Breast fibroadenoma DM (diabetes mellitus) (HCC) Hx of basal cell carcinoma Malignant melanoma nos Multiple thyroid nodules Past Surgical History: Procedure Laterality Date CHEST SURGERY wide local excision of left anterior chest melanoma (1.0 mm deep) with SLNBx (- ) performed in 1995. S/p wide local excision of right forearm melanoma (0.2 mm deep) performed in 2000. Social History Social History Marital status: Spouse name: N/A Number of children: N/A Years of education: N/A Occupational History Not on file. Social History Main Topics Smoking status: Never Smoker Smokeless tobacco: Never Used Alcohol use No Drug use: No Sexual activity: Not on file Other Topics Concern Not on file Social History Narrative No narrative on file No family hx of melanoma Review of Systems Constitutional: Negative. Respiratory: Negative. Gastrointestinal: Negative. Skin: Negative. Neurological: Negative. All other systems reviewed and are negative. Objective: amitriptyline (ELAVIL) 25 mg tablet 4 tabs po hs aspirin EC 81 mg tablet Take 81 mg by mouth daily. Take with food. butalbital/acetaminophen/caffeine(+) (FIORICET) 50/325/40 mg tablet Take 1 tablet by mouth every 4 hours while awake as needed for Headache. one tab. as needed cevimeline(+) (EVOXAC) 30 mg capsule Take 30 mg by mouth three times daily. diclofenac sodium DR (VOLTAREN) 50 mg tablet Take 50 mg by mouth twice daily. DUREZOL 0.05 % ophthalmic emulsion estrogens, conjugated (PREMARIN) 0.3 mg tablet Take 1 Tab by mouth daily. METHYL-B12/L-MEFOLATE/B6 PHOS (METANX PO) Take by mouth twice daily. pramipexole (MIRAPEX) 0.125 mg tablet TAKE 1 TABLET BY MOUTH TWICE DAILY. INDICATIONS: RESTLESS LEGS SYNDROME Saxagliptin (ONGLYZA) 2.5 mg Tab Take by mouth daily. Selenium 100 mcg tab Take 1 tablet by mouth twice daily. simvastatin (ZOCOR) 20 mg tablet Take 20 mg by mouth at bedtime daily. triamterene-hydrochlorothiazide (MAXZIDE) 37.5-25 mg tablet TAKE 1 TABLET BY MOUTH DAILY. trimethoprim/polymyxin B (POLYTRIM) 0.1 - 10,000 %-unit/mL ophthalmic solution verapamil SR (VERELAN) 240 mg C24P Take 1 capsule by mouth at bedtime daily. Vitals: 11/29/17 1347 BP: (!) 188/100 Pulse: 74 Resp: 17 Temp: 36.5 C (97.7 F) TempSrc: Oral SpO2: 100% Weight: 101 kg (222 lb 9.6 oz) Height: 170.2 cm (67.01") Body mass index is 34.86 kg/m. Pain Score: Zero Pain Addressed: N/A Patient Evaluated for a Clinical Trial: No treatment clinical trial available for this patient. Eastern Cooperative Oncology Group performance status is 0, Fully active, able to carry on all pre-disease performance without restriction.. Physical Exam Constitutional: She is oriented to person, place, and time. She appears well- developed and well-nourished. No distress. HENT: Head: Normocephalic. Mouth/Throat: Oropharynx is clear and moist. Neck: Trachea normal and normal range of motion. Neck supple. Cardiovascular: Normal rate, regular rhythm, S1 normal and S2 normal. Exam reveals no S3 and no S4. Pulmonary/Chest: Effort normal and breath sounds normal. Abdominal: Soft. Normal appearance and bowel sounds are normal. She exhibits no mass. There is no hepatosplenomegaly. There is no tenderness. Musculoskeletal: She exhibits no edema. Lymphadenopathy: Head (right side): No submental, no submandibular, no tonsillar, no preauricular, no posterior auricular and no occipital adenopathy present. Head (left side): No submental, no submandibular, no tonsillar, no preauricular, no posterior auricular and no occipital adenopathy present. She has no cervical adenopathy. She has no axillary adenopathy. Right: No supraclavicular adenopathy present. Left: No supraclavicular adenopathy present. Neurological: She is alert and oriented to person, place, and time. She has normal strength. No cranial nerve deficit. Skin: Skin is warm, dry and intact. Detailed skin exam performed. Primary sites are clear. No suspicious lesions or subcutaneous nodules Psychiatric: She has a normal mood and affect. Her speech is normal and behavior is normal. Judgment and thought content normal. Cognition and memory are normal. Vitals reviewed. [id number] DIGITAL MAMMO SCREEN BILAT/TERRANCE/CAD: NOVEMBER 29, 2017 - 2D/3D Procedure 3D Routine views. 2D Routine views. There are scattered areas of fibroglandular density. 2D, and 3D images were obtained. No masses, densities or calcifications to suggest malignancy. No change when compared to prior studies. Electronically signed and approved by: Joseluis Munguia M.D. [id number] IMPRESSION ACR BI-RADS Assessments: BIRAD 1-Negative Reviewed all available records Assessment and Plan: Problem Thyroid Nodule Melanoma (HCC) DIAGNOSIS: Melanoma PAST THERAPY: S/p wide local excision of left anterior chest melanoma (1.0 mm deep) with SLNBx (-) performed in 1995. S/p wide local excision of right forearm melanoma (0.36 mm deep) performed in 2000. PRESENT THERAPY : Surveillance/Survivorship Thyroid nodule She will f/u with Dr. Hassan's office regarding CT neck performed today. Melanoma (HCC) No evidence of recurrent disease. We discussed [...] instructions and education and verbalize good understanding. This is a new patient to medical oncology being seen in the nurse practitioner clinic as delegated by my collaborating physician, Dr. John Diaz, and within the guidelines of our collaborative practice agreement. I have discussed with my collaborating physician who has established and concurs with the plan of care as outlined. in this encounter Miscellaneous Notes * Assessment & Plan Note - Lucero Meier, BALL FRINGE MACHINE OPERATOR - 12/04/2017 11:56 AM JACKER FEEDER Associated Problem(s): Melanoma (HCC) No evidence of recurrent disease. We discussed [...] instructions and education and verbalize good understanding. * Assessment & Plan Note - Lucero Meier, BALL FRINGE MACHINE OPERATOR - 12/04/2017 11:56 AM JACKER FEEDER Associated Problem(s): Thyroid nodule She will f/u with Dr. Hassan's office regarding CT neck performed today. in this encounter Plan of Treatment Name Priority Associated Diagnoses Order Schedule MAMMO SCREEN BILAT Routine Malignant melanoma, Expected: 11/29/2018 unspecified site (HCC) (Approximate), Expires: 11/29/2018 as of this encounter Visit Diagnoses Diagnosis Malignant melanoma, unspecified site (HCC) Thyroid nodule Nontoxic uninodular goiter
--- OUTSIDE RECORDS SUMMARY | 2017-12-16 03:57 | XMS REPORT | Encounter Summary ---
Author Author [facility] Organization [facility] Address Unknown Phone Unavailable Care Team Providers Care Flanging Operator Name Role Phone Lilia Zhou MD PCP Kristopher Pack MD Unavailable Tamara Awan APRN Unavailable Dashawn Gonzalez MD Unavailable Reason for Visit * Reason Comments Test Encounter Details Date Type Department Care Team Description 11/22/2017 Telephone [facility] Elsy Frost Test Physicians - Surgery [facility] [address] [place] [id number] Social History Tobacco Use Types Packs/Day Years Used Date Never Smoker Smokeless Tobacco: Never Used Alcohol Use Drinks/Week oz/Week Comments No Sex Assigned at Date Recorded Not on file as of this encounter Miscellaneous Notes * Telephone Encounter - Elsy Frost - 11/22/2017 3:57 PM MANAGER CLINICAL Lena Rodrigues ( ) at [phone] called regarding whether she should have labs and a mammogram when comes on Th. (11/29/17) as routinely done. She stated that a message may be left on her voicemail if a call back is made on Sun. (11/23) because she is having cataract surgery on this date. Routed O2 message to Estee Johnson RN, with Dr. Fito Guerrero. in this encounter Plan of Treatment Not on fileas of this encounter Visit Diagnoses Not on filein this encounter
--- OUTSIDE RECORDS SUMMARY | 2017-12-16 03:58 | XMS REPORT | Encounter Summary ---
Author Author [facility] Organization [facility] Address Unknown Phone Unavailable Care Team Providers Care Drum Cleaner Name Role Phone Lilia Zhou MD PCP Kristopher Pack MD Unavailable Tamara Awan APRN Unavailable Dashawn Gonzalez MD Unavailable Reason for Visit * Reason Comments Medication Refill Encounter Details Date Type Department Care Team Description 10/19/2017 Refill [facility] Dashawn Gonzalez MD Physicians-Neurology [address] [facility] [address] [place] [address] [place], [place] [phone] Social History Tobacco Use Types Packs/Day Years Used Date Never Smoker Smokeless Tobacco: Never Used Alcohol Use Drinks/Week oz/Week Comments No Sex Assigned at Date Recorded Not on file as of this encounter Plan of Treatment Not on fileas of this encounter Visit Diagnoses Not on filein this encounter
--- OUTSIDE RECORDS SUMMARY | 2017-12-16 03:58 | XMS REPORT | Encounter Summary ---
Author Author [facility] Organization [facility] Address Unknown Phone Unavailable Care Team Providers Care Alum Mixer Name Role Phone Lilia Zhou MD PCP Kristopher Pack MD Unavailable Tamara Awan APRN Unavailable Dashawn Gonzalez MD Unavailable Reason for Visit * Reason Comments Medication Refill Encounter Details Date Type Department Care Team Description 10/06/2017 Refill [facility] Dashawn Gonzalez MD - Neurology [address] [place] [address] [place] [address] [phone] Social History Tobacco Use Types Packs/Day Years Used Date Never Smoker Smokeless Tobacco: Never Used Alcohol Use Drinks/Week oz/Week Comments No Sex Assigned at Date Recorded Not on file as of this encounter Plan of Treatment Not on fileas of this encounter Visit Diagnoses Not on filein this encounter
--- OUTSIDE RECORDS SUMMARY | 2017-12-16 03:58 | XMS REPORT | Encounter Summary ---
Author Author [facility] Organization [facility] Address Unknown Phone Unavailable Care Team Providers Care Shuttlecock Assembler Name Role Phone Lilia Zhou MD PCP Kristopher Pack MD Unavailable Tamara Awan APRN Unavailable Dashawn Gonzalez MD Unavailable Encounter Details Date Type Department Care Team Description 11/15/2017 Hospital [facility] Jake Hassan MD Encounter Hospital Radiology [address] [place] [address] [address] FLOOR [phone] [place] [address] [phone] Social History Tobacco Use Types Packs/Day Years [...] on fileas of this encounter Results * US THYROID (11/15/2017 11:37 AM) Specimen [...] though lack a fatty hilum. The largest account manager sales representative level one lymph node measures 2.3 x 0.8 x 2.3 cm (labeled #2), with somewhat disorganized blood flow on color Doppler interrogation. Prominent, yet normal sized bilateral cervical lymph nodes are noted. These all maintain an elongated shape and typical fatty hilum, most likely reactive in nature. Procedure Note Interface, Radiant Results - 11/15/2017 4:26 PM ELECTRICIAN APPRENTICE POWERHOUSE Ultrasound of the Neck Clinical Indication:Female, 71 [...] though lack a fatty hilum. The largest account manager sales representative level one lymph node measures 2.3 [...] Samantha Cleveland M.D. on 11/15/2017 3:50 PM. in this encounter Visit Diagnoses Diagnosis Thyroid nodule Nontoxic uninodular goiter Hyperfunctional dysphonia Dysphonia Laryngopharyngeal reflux Other diseases of larynx
--- OUTSIDE RECORDS SUMMARY | 2017-12-16 03:58 | XMS REPORT | Encounter Summary ---
Author Author [facility] Organization [facility] Address Unknown Phone Unavailable Care Team Providers Care Environmental Director Name Role Phone Lilia Zhou MD PCP Kristopher Pack MD Unavailable Tamara Awan ROADWAY DESIGNER Unavailable Dashawn Gonzalez MD Unavailable Reason for Visit * Reason Comments Medication Refill Encounter Details Date Type Department Care Team Description 10/30/2017 Refill [facility] Dashawn Gonzalez MD Physicians-Neurology [address] [facility] [address] [place] [address] [place], [place] [phone] Social History Tobacco Use Types Packs/Day Years Used Date Never Smoker Smokeless Tobacco: Never Used Alcohol Use Drinks/Week oz/Week Comments No Sex Assigned at Date Recorded Not on file as of this encounter Miscellaneous Notes * Telephone Encounter - Jazmin Romero LPN - 10/30/2017 12:52 PM PILE DRIVING SUPERINTENDENT Patient left a voicemail following up on Premarin refill, stating Dr. Edwards Forgot to fill premarin at last office, routing to Dr. Edwards to advise. Jazmin Romero LPN in this encounter Plan of Treatment Not on fileas of this encounter Visit Diagnoses Not on filein this encounter
--- OUTSIDE RECORDS SUMMARY | 2017-12-16 03:58 | XMS REPORT | Encounter Summary ---
Author Author [facility] Organization [facility] Address Unknown Phone Unavailable Care Team Providers Care Efficiency Analyst Name Role Phone Lilia Zhou MD PCP Kristopher Pack MD Unavailable Tamara Awan APRN Unavailable Dashawn Gonzalez MD Unavailable Reason for Visit * Reason Comments Headache Encounter Details Date Type Department Care Team Description 10/25/[address] [facility] Lilia Zhou MD Migraine without status Physicians-Neurology [address] [place] [address] Dr Bautista 5 migrainosus, not [facility] [place] [address] intractable, unspecified [address] [phone] migraine type (Primary [place], [place] Dx); [id number] D Restless legs syndrome [phone] Chayo haddad DO [address] [place] [address] Social History Tobacco Use Types Packs/Day Years Used Date Never Smoker Smokeless Tobacco: Never Used Alcohol Use Drinks/Week oz/Week Comments No Sex Assigned at Date Recorded Not on file as of this encounter Last Filed Vital Signs Vital Sign Reading Time Taken Blood Pressure 165/84 10/25/2017 11:05 AM SALES & SERVICE ASSOCIATE Pulse 74 10/25/2017 11:05 AM SALES & SERVICE ASSOCIATE Temperature - - Respiratory Rate - - Oxygen Saturation - - Inhaled Oxygen - - Concentration Weight 98.4 kg (217 lb) 10/25/2017 11:05 AM SALES & SERVICE ASSOCIATE Height 170.2 cm (5' 7") 10/25/2017 11:05 AM SALES & SERVICE ASSOCIATE Body Mass Index 33.99 10/25/2017 11:05 AM SALES & SERVICE ASSOCIATE in this encounter Progress Notes * Dashawn Gonzalez MD - 10/25/2017 10:15 AM SALES & SERVICE ASSOCIATE Pt seen, examined and discussed with Dr Edwards. I agree with her hx, findings, impressions and plan. * Chayo Edwards, - 10/25/2017 10:15 AM SALES & SERVICE ASSOCIATE Formatting of this note may be different from the original. Date of Service: 10/25/2017 Subjective: Lena Rodrigues is a 71 y.o. female. History of Present Illness Lena Rodrigues is a 71 y.o. R handed female her for follow up regarding headaches and RLS. Last seen in Dr. Gonzalez's clinic on 08/2016 where she was continued on Fiorcet, amitriptyline, verapamil, and pramipexole. She followed with Dr. Gonzalez about 30 years. history obtained from patient and accompanied by . Character of HAs are unchanged. Takes 100mg qhs of amitriptyline and verapamil SR 240mg qday. Takes 2 -6 tabs Fiorcet a day for an average of 12 days in the month. She has been on this regimen for over 20 years. She is not interested in changing her meds. Sleep is good and has 6-9 hours of sleep a night. Compliant with CPAP. No new neurologic issues. RLS symptoms are controlled, no issues with pramipexole. Denies SEs to above meds. PMH: unchanged PSH: recent knee replacement of L knee FH: unchanged SH: unchanged Review of Systems Neurological: Positive for headaches. All other systems reviewed and are negative. Objective: amitriptyline (ELAVIL) 25 mg tablet 4 tabs po hs butalbital/acetaminophen/caffeine(+) (FIORICET) 50/325/40 mg tablet Take 1 Tab by mouth every 4 hours while awake as needed for Headache. one tab. as needed cevimeline(+) (EVOXAC) 30 mg capsule Take 30 mg by mouth three times daily. chlorproMAZINE (THORAZINE) 50 mg tablet Take 1 Tab by mouth daily as needed. diclofenac sodium DR (VOLTAREN) 50 mg tablet Take 50 mg by mouth twice daily. estrogens, conjugated (PREMARIN) 0.3 mg tablet Take 1 Tab by mouth daily. gabapentin (NEURONTIN) 300 mg capsule Take 300 mg by mouth every 8 hours. Glucosamine 1,000 mg Tab Take by mouth Daily. 2,000mg daily METHYL-B12/L-MEFOLATE/B6 PHOS (METANX PO) Take by mouth twice daily. pramipexole (MIRAPEX) 0.125 mg tablet TAKE 1 TABLET BY MOUTH TWICE DAILY. INDICATIONS: RESTLESS LEGS SYNDROME Saxagliptin (ONGLYZA) 2.5 mg Tab Take by mouth daily. simvastatin (ZOCOR) 20 mg tablet Take 20 mg by mouth at bedtime daily. triamterene-hydrochlorothiazide (MAXZIDE) 37.5-25 mg tablet TAKE 1 TABLET BY MOUTH DAILY. verapamil SR (VERELAN) 240 mg C24P Take 1 Cap by mouth at bedtime daily. Vitals: 10/25/17 1105 BP: 165/84 Pulse: 74 Weight: 98.4 kg (217 lb) Height: 170.2 cm (67") Body mass index is 33.99 kg/(m^2). Physical Exam General: Resting comfortably Respiratory: No respiratory distress Neuro Exam: Mental status: Alert and oriented to person, place, time, and situation. Follows commands Speech: Fluent, intact comprehension and articulation CN: EOMIB, PERRL, facial sensation intact, facial movement symmetric, hearing grossly intact, tongue protrudes midline, no uvula Motor: Moves all extremities equally against gravity without difficulty or abnormalities with 5/5 strength Reflexes (R/L): 2/2 in biceps, brachioradialis, triceps, patellars, achilles; no clonus, toes down going Sensation: intact to light touch throughout Coordination: grossly intact with FTN, HTS Diamond: able to rise from a seated position, normal arm swing and step length, no decompensation of turn, no ataxia Assessment and Plan: Lena Rodrigues is a 71 y.o. R handed female who presents to Neurology clinic for follow up regarding headaches and RLS. Neuro exam unremarkable Impression: 1. Migraine: well controlled with Fiorcet prn, verapamil and amitriptyline. Has been on this regimen for 20+ years and is not interested in changing. No SEs reported with this meds. Had taken thorazine prn (once or twice a year) in the past with good benefit with "really bad HAs." 2. RLS: well controlled with pramipexole, no SEs 3. SURY: controlled with CPAP PLAN: > Continue Fiorcet prn (refilled) > Continue amitriptyline 100mg qhs (refilled) > Continue verapamil SR 240mg qday (refilled) > Continue pramipexole 0.125mg 2 tabs prior to going to bed (refilled) > Continue CPAP qhs RTC: 1 year Time spent with the patient was 30 minutes, 25 minutes of which were toward counseling regarding diagnosis, prognosis, and management of above issues/ complaints. Patient seen, examined, and plan of care discussed with Dr. Gonzalez. Gaudencio Edwards DO Neurology Resident Pager: [phone] in this encounter Plan of Treatment Not on fileas of this encounter Visit Diagnoses Diagnosis Migraine without status migrainosus, not intractable, unspecified migraine type - Primary Restless legs syndrome Restless legs syndrome (RLS)
--- OUTSIDE RECORDS SUMMARY | 2017-12-16 03:58 | XMS REPORT | Encounter Summary ---
Author Author [facility] Organization [facility] Address Unknown Phone Unavailable Care Team Providers Care School Supervisor Name Role Phone Lilia Zhou MD PCP Kristopher Pack MD Unavailable Tamara Awan APRN Unavailable Dashawn Gonzalez MD Unavailable Reason for Visit * Reason Comments Thyroid Problem New Patient, Submental Lymph nodes/Thyroid nodules Encounter Details Date Type Department Care Team Description 11/15/2017 Office Visit [facility] Jake Hassan MD Thyroid nodule (Primary Physicians - ENT [address] Dx); 3RD FLOOR POD C [place] [address] Myrtle's edema of the [address] [place] [address] vocal folds OFFICE BLDG [phone] [place] [address] Social History Tobacco Use Types Packs/Day Years Used Date Never Smoker Smokeless Tobacco: Never Used Alcohol Use Drinks/Week oz/Week Comments No Sex Assigned at Date Recorded Not on file as of this encounter Last Filed Vital Signs Vital Sign Reading Time Taken Blood Pressure 157/99 11/15/2017 12:45 PM RESEARCH TECHNICIAN Pulse 79 11/15/2017 12:45 PM RESEARCH TECHNICIAN Temperature - - Respiratory Rate - - Oxygen Saturation - - Inhaled Oxygen - - Concentration Weight 100.2 kg (221 lb) 11/15/2017 12:45 PM RESEARCH TECHNICIAN Height 170.2 cm (5' 7") 11/15/2017 12:45 PM RESEARCH TECHNICIAN Body Mass Index 34.61 11/15/2017 12:45 PM RESEARCH TECHNICIAN in this encounter Progress Notes * Jake Hassan MD - 11/15/2017 12:00 PM RESEARCH TECHNICIAN Formatting of this note may be different from the original. Date of Service: 11/15/2017 Subjective: Lena Rodrigues is a 71 y.o. female. History of Present Illness She has a FH of thyroid cancer and she herself has thryoid nodules. She was scheduled for FNA with Dr. Sosa today, but nodules were too small to biopsy AND APPARENTLY LOOKED IMPROVED AND POST LOCATION SO THEY DEFERRED ON FNA. No changes in dysphagia or dysphonia since last visit. STILL WITH STABLE RASPINESS IN VOICE AND FOLLOWED WITH VC EDEMA Lena has received previous treatment and workup including: TSH: 1.06-- 05/11/17 OSH Tgb antibody: 558 (Nl <115) TPO ab 16 (nl <15) US OSH - 5.2 cm in the right and 5.9 on the left - Right: Small calcificed nodule in the right thyroid gland 0.6 x 4.9 x 6.3 mm in size - Right: Focal nodule in inferior posterior aspect of gland 1.6 x 0.95 x 1.3 cm in size - Left: heterogeneous, no focal mass. Enlargement of gland with heterogeneous echo textures with calcified and noncalcified nodules in right lobe of thyroid gland, likely due to multinodular goiter. FNA: Lymphocytic thyroiditis, histiocytes indicating partial cystic degeneration (Bipsy from RIGHT thyroid, per patient three passes, one nodule sampled, she believes it was the non-calcified nodule). US GUIDED ACCORDING TO PATIENT Thyroid scan: N/a Vitamin D: N/a DID HAVE KNEE REPLACEMENT WHICH WENT WELL AND PINCHED NERVE IN BACK AND APPARENTLY HAS NODULE ON CXR THAT IS BEING RETANA WITH CT C Review of Systems Constitutional: Negative. HENT: Positive for trouble swallowing. Eyes: Negative. Respiratory: Positive for choking. Cardiovascular: Negative. Gastrointestinal: Negative. Endocrine: Negative. Genitourinary: Negative. Musculoskeletal: Negative. Skin: Negative. Allergic/Immunologic: Negative. Neurological: Negative. Hematological: Negative. Psychiatric/Behavioral: Negative. Objective: amitriptyline (ELAVIL) 25 mg tablet 4 [...] capsule by mouth at bedtime daily. Vitals: 11/15/17 1245 BP: (!) 157/99 Pulse: 79 Weight: 100.2 kg (221 lb) Height: 170.2 cm (67") Body mass index is 34.61 kg/m. Physical Exam Alert, NAD Head: Normocephalic/atraumatic OVERWEIGHT AND THICK NECK Ears: AU Auricles without lesions, EAC clear AU, hearing grossly intact AU Eyes: EOMs equal OU, PERRL, vision grossly intact OU, conjunctiva clear Nose: Externally without lesions, septum midline, no visible lesions via anterior rhinoscopy OC/OP: Teeth in good repair, tongue movement and sensation intact, no mass or mucosal lesions in OC or OP visibly or palpably, tonsils symmetric Larynx: Voice normal without stridor or sturgor, normal external landmarks Neck: No neck mass or adenopathy, no palpable thyroid masses, no cutaneous changes, NECK THICK, NO SUBMENTAL ADENOPATHY APPRECIATED mint 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 I looked with the flexible fiberoptic laryngoscope. The nasal anatomy is normal without mass or mucosal lesion. The laryngoscope was then passed into the nasopharynx, which showed normal eustachian tube openings. The fossae of Rosenmller were clear with normal elevation of the soft palate and were without any evidence of masses or lesions. Passing the flexible scope into the oropharynx and hypopharynx revealed that the base of tongue and vallecula were without lesions. The piriform sinuses were without lesions or any pooling of secretions or visible aspiration. The supraglottic structures are without lesions, including the epiglottis and aryepiglottic folds. The false vocal cords and true vocal cords were without lesions. The TVC were symmetric and mobile bilaterally, without mucosal lesions EXCEPT SMALL AMOUNT OF REINKES EDEMA. The visualized part of the subglottis is clear. There was no extrinsic mass effects in the pharynx. The flexible fiberoptic scope was then removed. The patient tolerated the procedure well without complications. LOOKS STABLE TODAY, I PERSONALLY PERFORMED THIS EXAM. Assessment and Plan: Lena Rodrigues has a multiple right thyroid nodules (one smaller calcified and one larger 1.6 cm in size) and is euthyroid. FNA reportedly from 1.6 cm nodule benign/lymphocytic thyroiditis. DR Farfan SAW AND LOOKS BETTER AND DEFER ON FNA. SYMPTOMS STABLE AND VC REINKES MILD STABLE WELL VOICE, SO FUNCTIONALLY STABLE. GETTING CXR NODULE RETANA LOCALLY BUT OUR REPORT SAYS STABLE SINCE 2006. I DONT FEEL ANY SUBMENTAL ADENOPATHY, WILL LOOK AT US REPORT ?ct n FOR THIS OR FOLLOW Today, nodules were not large enough for Dr. Reyna to biopsy AND IN MORE DIFF LOCATION-SMALLER, SO DEFERRED. Plan for follow up in 12 month with repeat ultrasound thyroid. ATTESTATION I have reviewed and agree with the chief complaint I personally performed all or the tristan portions of the E/M visit, discussed the case with the resident and concur with the resident documentation of the history , physical exam, assessment, and treatment plan unless otherwise noted. I was either present or personally performed all the components of the visit. All documentation in CAPS (except Radiology Reports) represents my changes to the assessment, exam and recommendations for treatment. Documentation not in CAPS was provided by the resident. 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
--- OUTSIDE RECORDS SUMMARY | 2017-12-16 03:58 | XMS REPORT | Encounter Summary ---
Author Author [facility] Organization [facility] Address Unknown Phone Unavailable Care Team Providers Care Tool Sharpener Name Role Phone Lilia Zhou MD PCP Kristopher Pack MD Unavailable Tamara Awan APRN Unavailable Dashawn Gonzalez MD Unavailable Reason for Visit * Reason Comments Other appointment Encounter Details Date Type Department Care Team Description 10/31/2017 Telephone [facility] Arnold Reyna MD Other (appointment) Physicians - Internal [address] [facility] [place] [address] 5TH FLOOR POD A [phone] [address] [facility] [place] [address] Social History Tobacco Use Types Packs/Day Years Used Date Never Smoker Smokeless Tobacco: Never Used Alcohol Use Drinks/Week oz/Week Comments No Sex Assigned at Date Recorded Not on file as of this encounter Miscellaneous Notes * Telephone Encounter - Jenn Hassan LPN - 10/31/2017 3:14 PM TAX ACCOUNTANT Attempted to call Patient to see if can move her Febuary 8 appointment to 1040 from 1120 Left message with phone number for Patient to call back in this encounter Plan of Treatment Not on fileas of this encounter Visit Diagnoses Not on filein this encounter
--- OUTSIDE RECORDS SUMMARY | 2017-12-16 03:58 | XMS REPORT | Continuity of Care Document ---
Author Author [facility] Organization [facility] Address Unknown Phone Unavailable Allergies Active Description Code Type Severity Reaction Onset Reported/Identified Relationship to Patient Clinical Status Yes No Known Drug Allergies [id number] Drug Allergy Unknown N/A 08/15/2007 Medications There is no data. 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 10/16/2011 Ot V10.83 HX-SKIN MALIGNANCY NEC 10/16/2011 Ot V43.65 KNEE JOINT REPLACEMENT STATUS 11/12/2014 Ot 717.3 11/12/2014 Ot 717.40 11/12/2014 Ot 717.7 11/12/2014 Ot V72.83 11/12/2014 Ot V74.8 11/12/2014 Ot 721.2 12/03/2014 HAYDEN CAR, VALENTE Bowen Ot 172.9 06/17/2015 Ot 721.2 06/17/2015 HAYDEN CAR, VALENTE Bowen Ot 172.9 06/22/2015 Ot 721.2 06/22/2015 HAYDEN CAR, VALENTE Bowen Ot 172.9 08/26/2016 OBED PAK DO Ot G47.33 OBSTRUCTIVE SLEEP APNEA (ADULT) (PEDIATR 08/28/2016 OBED PAK DO Ot G47.33 OBSTRUCTIVE SLEEP APNEA (ADULT) (PEDIATR 10/18/2016 Ot 721.2 THORACIC SPONDYLOSIS 10/18/2016 VALENTE BLAKE MD Ot 172.9 MALIG MELANOMA SKIN NOS 04/30/2017 AL-KASSPOOLES MD, VALENTE F Ot 172.9 MALIG MELANOMA SKIN NOS 04/30/2017 HAYDEN CAR, VALENTE F Ot 172.9 MALIG MELANOMA SKIN NOS 05/03/2017 HAYDEN CAR, VALENTE F Ot 172.9 MALIG MELANOMA SKIN NOS 05/08/2017 WILLIAM CAR, JONATHAN P Ot E04.1 NONTOXIC SINGLE THYROID NODULE 05/25/2017 HAYDEN CAR, VALENTE F Ot 172.9 MALIG MELANOMA SKIN NOS 05/25/2017 WILLIAM CAR JONATHAN P Ot E04.1 NONTOXIC SINGLE THYROID NODULE 06/04/2017 JONATHAN THOMAS MD P Ot E04.1 NONTOXIC SINGLE THYROID NODULE 08/14/2017 JONATHAN THOMAS MD P Ot E04.1 NONTOXIC SINGLE THYROID NODULE 09/03/2017 HAYDEN CAR, VALENTE F Ot 172.9 MALIG MELANOMA SKIN NOS 09/03/2017 WILLIAM CAR JONATHAN P Ot E04.1 NONTOXIC SINGLE THYROID NODULE 09/03/2017 VALENTE BLAKE MD F Ot 172.9 MALIG MELANOMA SKIN NOS 09/03/2017 WILLIAM CAR JONATHAN P Ot E04.1 NONTOXIC SINGLE THYROID NODULE 09/25/2017 LOGAN MARTINO SHIPPING AND RECEIVING COORDINATOR Ot E04.9 NONTOXIC GOITER, UNSPECIFIED 09/25/2017 LOGAN MARTINO SHIPPING AND RECEIVING COORDINATOR Ot R91.8 OTHER NONSPECIFIC ABNORMAL FINDING OF MAAGLIS 10/29/2017 JONATHAN THOMAS MD P Ot E04.1 NONTOXIC SINGLE THYROID NODULE 11/21/2017 KORINA COLE MD Ot H26.9 UNSPECIFIED CATARACT 11/21/2017 KORINA COLE MD Ot Z01.818 ENCOUNTER FOR OTHER PREPROCEDURAL EXAMIN 11/22/2017 KORINA COLE MD Ot H26.9 UNSPECIFIED CATARACT 11/22/2017 KORINA COLE MD Ot Z01.818 ENCOUNTER FOR OTHER PREPROCEDURAL EXAMIN 11/23/2017 KORINA COLE MD Ot E11.9 TYPE 2 DIABETES MELLITUS WITHOUT COMPLIC 11/23/2017 KORINA COLE MD Ot H25.9 UNSPECIFIED AGE-RELATED CATARACT 11/23/2017 KORINA COLE MD Ot I10 ESSENTIAL (PRIMARY) HYPERTENSION 11/23/2017 KORINA COLE MD Ot Z79.82 SENIOR CARE (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 OF ASPIRIN 11/23/2017 KORINA COLE MD Ot Z79.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 11/26/2017 KORINA COLE MD Ot E11.9 TYPE 2 DIABETES MELLITUS WITHOUT COMPLIC 11/26/2017 KORINA COLE MD Ot H25.9 UNSPECIFIED AGE-RELATED CATARACT 11/26/2017 KORINA COLE MD Ot I10 ESSENTIAL (PRIMARY) HYPERTENSION 11/26/2017 KORINA COLE MD, Ot Z79.82 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 TANKER TRUCK DRIVER (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 OF 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 11/26/2017 KORINA COLE MD, Ot Z79.899 OTHER SENIOR CARE (CURRENT) DRUG THERAPY 12/04/2017 HAYDEN CAR, VALENTE F Ot 172.9 MALIG MELANOMA SKIN NOS 12/04/2017 WILLIAM CAR, JONATHAN P Ot E04.1 NONTOXIC SINGLE THYROID NODULE 12/04/2017 LOGAN MARTINO SHIPPING AND RECEIVING COORDINATOR Ot E04.9 NONTOXIC GOITER, UNSPECIFIED 12/04/2017 LOGAN MARTINO SHIPPING AND RECEIVING COORDINATOR Ot R91.8 OTHER NONSPECIFIC ABNORMAL FINDING OF MAGALIS 12/04/2017 KORINA COLE MD Ot H26.9 UNSPECIFIED CATARACT 12/04/2017 KORINA COLE MD Ot Z01.818 ENCOUNTER FOR OTHER PREPROCEDURAL EXAMIN 12/06/2017 LOGAN MARTINO SHIPPING AND RECEIVING COORDINATOR Ot R91.8 OTHER NONSPECIFIC ABNORMAL FINDING OF MAGALIS 12/10/2017 KORINA COLE MD Ot E11.9 TYPE 2 DIABETES MELLITUS WITHOUT COMPLIC 12/10/2017 KORINA COLE MD Ot H25.9 UNSPECIFIED AGE-RELATED CATARACT 12/10/2017 KORINA COLE MD Ot I10 ESSENTIAL (PRIMARY) HYPERTENSION 12/10/2017 KORINA COLE MD Ot Z79.82 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 Results Test Result Range Capillary blood glucose measurement by glucometer (mass/volume) - 11/23/17 09: 00 Capillary blood glucose measurement by glucometer (mass/volume) 137 mg/dL 70-110 Encounters ACCT No. Visit Date/Time Discharge Status Pt. Type Provider Facility Loc./Unit Complaint [id number] 12/07/2017 05:36:00 12/07/2017 14:24:00 DIS Outpatient KORINA COLE MD [facility] PREOP CATARACT LEFT EYE [id number] 12/05/2017 09:36:00 12/05/2017 23:59:59 CLS Outpatient LOGAN MARTINO APRN [facility] RAD R93.[address] OF THE CHEST [id number] 11/23/2017 08:09:00 11/23/2017 09:50:00 DIS Outpatient KORINA COLE MD [facility] SDC CATARACT RIGHT EYE [id number] 11/22/2017 12:00:00 11/22/2017 23:59:59 CLS Outpatient KORINA COLE MD [facility] PREOP CATARACT RIGHT EYE [id number] 09/03/2017 13:43:00 09/03/2017 23:59:59 CLS Outpatient LOGAN MARTINO APRN [facility] RAD ABNORMAL CT OF CHEST [id number] 05/03/2017 10:23:00 05/03/2017 23:59:59 CLS Outpatient JONATHAN THOMAS MD [facility] RAD RT INFERIOR THYROID NODULE [id number] 08/25/2016 20:13:00 08/26/2016 06:15:00 DIS Outpatient OBED PAK DO [facility] SLEEP SURY,CHOKING/GASPING DURING SLEEP [id number] 11/12/2014 14:17:00 11/12/2014 23:59:59 CLS Outpatient VALENTE BLAKE MD [facility] LAB MELANOMA OF SKIN [id number] 12/14/2017 09:30:00 PEN Preadmit KORINA COLE MD [facility] CATARACT LEFT EYE [id number] 11/12/2014 14:14:00 Document Registration [id number] 10/14/2011 13:19:00 Document Registration [id number] 10/14/2011 10:53:00 Document Registration [id number] 07/10/2011 11:15:00 Document Registration [id number] 09/13/2009 08:12:00 Document Registration
--- OUTSIDE RECORDS SUMMARY | 2017-12-16 03:58 | XMS REPORT | Encounter Summary ---
Author Author [facility] Organization [facility] Address Unknown Phone Unavailable Care Team Providers Care Stem Assembler Name Role Phone Lilia Zhou MD PCP Kristopher Pack MD Unavailable Tamara Awan APRN Unavailable Dashawn Gonzalez MD Unavailable Encounter Details Date Type Department Care Team Description 11/15/2017 [facility] Arnold Reyna MD Nontoxic single thyroid Encounter [address] [place] [address] [place] [address] [phone] Social History Tobacco Use Types Packs/Day Years [...] mouth twice (VOLTAREN) 50 mg tablet daily. NISHIOL 0.05 % ophthalmic 11/05/2017 emulsion estrogens, conjugated [...] on fileas of this encounter Results * FREE T4 (FREE THYROXINE) ONLY (11/15/2017 1:41 PM) Component Value Ref Range T4-Free 0.9 0.6 - 1.6 NG/DL Specimen Performing Laboratory Blood MAIN LAB [address] [place] [address] * THYROID STIMULATING HORMONE-TSH (11/15/2017 1:41 PM) Component Value Ref Range TSH 0.454 0.35 - 5.00 MCU/ML Specimen Performing Laboratory Blood MAIN LAB [address] [place] [address] in this encounter Visit Diagnoses Diagnosis Thyroid nodule Nontoxic uninodular goiter Darline's thyroiditis Chronic lymphocytic thyroiditis Admitting Diagnoses Diagnosis Nontoxic single thyroid nodule
--- OUTSIDE RECORDS SUMMARY | 2017-12-16 03:58 | XMS REPORT | Encounter Summary ---
Author Author [facility] Organization [facility] Address Unknown Phone Unavailable Care Team Providers Care Harpooner Name Role Phone Lilia Zhou MD PCP Kristopher Pack MD Unavailable Tamara Awan APRN Unavailable Dashawn Gonzalez MD Unavailable Reason for Visit * Reason Comments Medication Refill Encounter Details Date Type Department Care Team Description 10/31/2017 Refill [facility] Dashawn Gonzalez MD Physicians-Neurology [address] [facility] [address] [place] [address] [place], [place] [phone] Social History Tobacco Use Types Packs/Day Years Used Date Never Smoker Smokeless Tobacco: Never Used Alcohol Use Drinks/Week oz/Week Comments No Sex Assigned at Date Recorded Not on file as of this encounter Miscellaneous Notes * Telephone Encounter - Jazmin Romero LPN - 10/31/2017 11:19 AM PAPER SALES REPRESENTATIVE Recieved fax refill request for Premarin .3mg from [facility]. JABIER , medication not included in plan of care set forth by Dr. Edwards. Routing to Dr. Edwards for approval. Routing to Trudi to review. Jazmin Romero LPN in this encounter Plan of Treatment Not on fileas of this encounter Visit Diagnoses Not on filein this encounter
--- OUTSIDE RECORDS SUMMARY | 2017-12-16 03:58 | XMS REPORT | Encounter Summary ---
Author Author [facility] Organization [facility] Address Unknown Phone Unavailable Care Team Providers Care Folder Stitcher Operator Name Role Phone Lilia Zhou MD PCP Kristopher Pack MD Unavailable Tamara Awan APRN Unavailable Dashawn Gonzalez MD Unavailable Reason for Visit * Reason Comments Thyroid Problem * Consult, Test & Treat (Routine) Status Reason Specialty Diagnoses / Referred By Referred To Procedures Contact Contact Authorized Endocrinology and Diagnoses Jake Hassan T, [place], Diabetes Services FNA, right MD Arnold MD / Endocrinology, thyroid [address] Met[address] vd [place], [place] Genetics rocedures [address] [address] PROCEDURE [place], [place] Phone: [phone] Phone: Encounter Details Date Type Department Care Team Description 11/15/2017 Procedure visit [facility] Arnold Reyna MD Thyroid nodule (Primary Physicians - Internal [address] Dx); [place] [address] Darline's thyroiditis [facility] [phone] Medical Office Bldg 5th Fl Pod A [address] [place] [address] Social History Tobacco Use Types Packs/Day Years Used Date Never Smoker Smokeless Tobacco: Never Used Alcohol Use Drinks/Week oz/Week Comments No Sex Assigned at Date Recorded Not on file as of this encounter Progress Notes * Arnold Reyna MD - 11/15/2017 11:20 AM CHANGEOVER OPERATOR Formatting of this note may be different from the original. Date of Service: 11/15/2017 Subjective: Arlene Rodrigues is a 71 y.o. female referred for evaluation of thyroid nodule by Dr Hassan History of Present Illness Ms Rodrigues is a pleasant 71 yo WF, referred for evaluation Her brother passed from thyroid cancer, (sclerosing mucoepidermoid carcinoma with eosinophilia) last year In March 2017, had preop for knee surgery, was noted to have a thyroid nodule Had a thyroid US and a FNA with lymphocytic thyroiditis No history of head or neck irradiation She has some neck fullness, but denies choking, trouble swallowing (except with big bites), voice changes or SOB Currently off thyroid hormone replacement Review of Systems Constitutional: Negative. HENT: Negative. Eyes: Negative. Respiratory: Negative. Cardiovascular: Negative. Gastrointestinal: Negative. Endocrine: Negative. Musculoskeletal: Positive for arthralgias. Neurological: Negative. Psychiatric/Behavioral: Negative. Objective: amitriptyline (ELAVIL) 25 [...] 1 capsule by mouth at bedtime daily. There were no vitals filed for this visit. There is no height or weight on file to calculate BMI. Physical Exam Constitutional: She appears well-developed. HENT: Head: Normocephalic. Eyes: Conjunctivae are normal. Neck: Thyromegaly present. No submental LAD. Thyroid is firm, enlarged, freely mobile, without thyroid nodules Cardiovascular: Normal rate. Pulmonary/Chest: Effort normal. Lymphadenopathy: She has no cervical adenopathy. Neurological: She is alert. Skin: Skin is dry. Psychiatric: Her behavior is normal. Thought content normal. Vitals reviewed. OSH records Hard copy N/A, per previous notes TSH: 1.06-- 05/11/17 OSH Tgb antibody: 558 [...] PATIENT Thyroid scan: N/a Vitamin D: N/a Assessment and Plan: Problem Darline's Thyroiditis 71 yo WF referred for evaluation Thyroid nodule Hashimotos thyroiditis Submental LAD Tbyroid nodule - We reviewed her thyroid US images from earlier today (report NA yet) and compared to her exam from 8 months ago - Diffusely enlarged, heterogenous gland, consistent with thyroiditis, with several bilateral pseudonodules - Coarsely calcified nodule in the right lobe, stable at 5-6mm, no blood flow, posterior shadowing - POsterior inferior nodule, isoechoic, no blood flow, no microcalcifications. This has been reportedly biopsied with thyroiditis, and is now stable to slightly smaller - Given its previous benign cytology and no change in size, recommend repeat thyroid US in one year - Reactive LAD is seen, especially in the submental area, without suspicious sonographic features Hashimotos thyroiditis - She is clinically and biochemically euthyroid - Discussed pathophysiology of thyroiditis - Discussed that she has a 1-2% annual risk of developing hypothyroidism. Recommend annual TSH - Discussed that selenium may slightly decrease inflammation and help with her mild compressive symptoms. Recommend 100mcg twice daily - We will repeat her thyroid function tests today. If normal check annually RTC 12 months with neck US ADDENDUM TFTs remain normal, high normal for her age Results for ARLENE RODRIGUES ( ) as of 11/16/2017 11:01 Ref. Range 11/15/2017 13:41 T4-Free Latest Ref Range: 0.6 - 1.6 NG/DL 0.9 TSH Latest Ref Range: 0.35 - 5.00 MCU/ML 0.454 in this encounter Plan of Treatment Not on fileas of this encounter Results * FREE T4 (FREE THYROXINE) ONLY (11/15/2017 1:41 PM) Component Value Ref Range T4-Free 0.9 0.6 - 1.6 NG/DL Specimen Performing Laboratory Blood MAIN LAB [address] [place] [address] * THYROID STIMULATING HORMONE-TSH (11/15/2017 1:41 PM) Component Value Ref Range TSH 0.454 0.35 - 5.00 MCU/ML Specimen Performing Laboratory Blood MAIN LAB [address] [place] [address] in this encounter Visit Diagnoses Diagnosis Thyroid nodule - Primary Nontoxic uninodular goiter Darline's thyroiditis Chronic lymphocytic thyroiditis
== END 2017-12-14 09:55 | disposition home or self-care (01) ==
LOC: SDC 07:52
PROVIDERS: ATTEND Specialist
DX: H25.9 Unspecified age-related cataract (principal); E11.36 Type 2 diabetes mellitus with diabetic cataract; I10 Essential (primary) hypertension; Z79.899 Other long term (current) drug therapy
CPT/HCPCS: 82962

== ENCOUNTER → 2020-03-03 | Outpatient (CLI) | payer MEDICARE, OTHER ==
[2020-03-03 09:28] LABS: CREATININE SERUM 1.48 MG/DL (0.60-1.30)
--- NOTE | 2020-03-03 10:03 | Diagnostic Imaging Report ---
EXAMINATION: CT Chest without contrast. TECHNIQUE: Multiple contiguous axial images were obtained through the chest without the use of intravenous contrast. All CT scans use one or more of the following dose optimizing techniques: automated exposure control, MA and/or KvP adjustment based on a patient size and exam type, or iterative reconstruction. INDICATION: Lung nodules. COMPARISON: 12/23/2018 FINDINGS: There is no edema or pneumonia. No pleural effusion. No pneumothorax. There is a stable 8 mm right middle lobe nodule. A 6 mm left lower lobe nodule is stable. A 10 mm left lower lobe nodule is also unchanged. No new nodules are seen. There are scattered areas of atelectasis. Heart size is normal. There are mild coronary artery calcifications. No pericardial effusion. Aorta is normal in caliber. There is no axillary or supraclavicular lymphadenopathy. There is no mediastinal lymphadenopathy. There is a large thyroid goiter, unchanged. Limited views of the upper abdomen are unremarkable. There are no suspicious osseus lesions. Scattered bone islands are seen in the spine. IMPRESSION: 1. Stable pulmonary nodules, these can be considered benign. Dictated by: Dictated on workstation # [id number]
== END ==
LOC: RAD 08:41
PROVIDERS: ATTEND Nurse Practitioner Family
DX: G47.33 Obstructive sleep apnea (adult) (pediatric) (principal); R91.8 Other nonspecific abnormal finding of lung field
CPT/HCPCS: 36415; 71250; 82565; 84520

== ENCOUNTER → 2023-03-15 | Outpatient (CLI) | payer MEDICARE, OTHER ==
[~2023-03-15] MED LIST changes: +ASPI-1238 PO; -ASPI-983 PO; +BUTA-235 PO; -BUTA1TAB9 PO; +CATHETER FLUSH 10 ML SYR IVP PRN; +SIMV-333 PO; -SIMV20TA PO; -TRIA1CAP4 PO; +TRIA1CAP84 PO
--- NOTE | 2023-03-15 14:03 | Diagnostic Imaging Report ---
INDICATION: Initial staging pulmonary nodules. Serum blood glucose level at the time of injection is 146 g/dL. Patient was a ministered 9.7 mCi F-18 FDG intravenously in the left antecubital location and PET imaging was performed from the top of the skull to mid thighs. Noncontrast CT was performed for attenuation correction and anatomic correlation. No prior PET/CT studies are available for comparison. Comparison is made with a CT chest study from 03/03/2020. There is symmetric activity throughout the brain. Soft tissues of the neck are unremarkable. No mediastinal or hilar hypermetabolism is identified. No pulmonary parenchymal hypermetabolism is identified. A nodule in the right middle lobe does not show FDG avidity. There is physiologic activity throughout the gastrointestinal and genitourinary tracts of the abdomen and pelvis. No suspicious areas of hypermetabolism are identified. IMPRESSION: Unremarkable PET/CT study. No suspicious areas of hypermetabolism are identified. Dictated by: Dictated on workstation # [id number]
== END ==
LOC: RAD 09:32
PROVIDERS: ATTEND Family Medicine
DX: R91.8 Other nonspecific abnormal finding of lung field (principal)
CPT/HCPCS: 78815; 82947; A9552

== ENCOUNTER → 2023-09-14 | Outpatient (CLI) | payer MEDICARE, OTHER ==
[~2023-09-14] VITALS: Ht 170.2 cm; Wt 93.2 kg
[~2023-09-14] MED LIST changes: -CATHETER FLUSH 10 ML SYR IVP PRN; +LIDOCAINE 1% INJ 10 ML VIAL INJ STA
--- NOTE | 2023-09-14 13:11 | Diagnostic Imaging Report ---
INDICATION: Left thyroid nodule. Patient presents for ultrasound-guided fine-needle aspiration. Decreased level of consciousness. The patient was brought to the procedure room and placed on the table in the supine position. Ultrasound imaging over the neck was performed to evaluate for an appropriate entry site. The neck was then prepped and draped in the usual sterile fashion. A small amount of 1% lidocaine was utilized for local anesthesia. A total of 4 passes was made into the dominant solid mass in the lower pole of the left lobe of the thyroid utilizing 25-gauge needles and fine-needle aspiration technique. Hemostasis was obtained. The patient tolerated the procedure well and left the Department in stable condition. IMPRESSION: Successful ultrasound-guided fine-needle aspiration of the dominant solid mass in the lower pole of the left lobe of the thyroid. Pathology results are currently pending. Dictated by: Dictated on workstation # [id number]
== END ==
LOC: RAD 11:27
PROVIDERS: ATTEND Physician Assistant
DX: E04.1 Nontoxic single thyroid nodule (principal)